=== PATIENT | male | born 1965 | race Caucasian/White ===

== ENCOUNTER 2019-07-11 18:57 | Emergency (ER) | payer BC, OTHER | END 2019-07-11 22:25 | disposition short-term general hospital (02) | LOC: ER 18:57 ==

== ENCOUNTER 2019-07-18 13:31 | Emergency (ER) | payer BC ==
[~2019-07-18] VITALS: Ht 183 cm; Wt 86.0 kg
[~2019-07-18 13:31] MED LIST: ACHD5005 PO; IBP800T PO; SULF1TAB38 PO
[2019-07-18 14:09] VITALS: BP 150/100
== END 2019-07-18 14:09 | disposition home or self-care (01) ==
LOC: EDUNIT# 13:31 → ER 13:32
DX: S01.81XD Laceration without foreign body of other part of head, subsequent encounter (principal); X58.XXXD Exposure to other specified factors, subsequent encounter